=== PATIENT | female | born 1995 | race Two or more races ===

== ENCOUNTER → 2017-04-06 | Outpatient (REF) | payer OTHER ==
[2017-04-07 14:07] LABS: RBC, URINE NONE SEEN /hpf (0-3); WBC, URINE 0-1 /hpf (0-3)
[2017-04-07 14:08] LABS: BACTERIA, URINE LARGE AMOUNT; HYALINE CAST, URINE NONE SEEN /lpf (0-1); MICROSCOPIC EXAM PERFORMED; SQUAMOUS EPITHELIAL CELL URINE MOD AMOUNT /hpf (SMALL AMT)
[2017-04-09 14:13] LABS: Candida species Negative (Negative); Gardnerella vaginalis Negative (Negative); Trichamonas vaginalis Negative (Negative)
== END ==
LOC: M SMT 12:53
DX: N89.8 Other specified noninflammatory disorders of vagina (principal)

== ENCOUNTER 2017-08-10 04:42 | Inpatient (IN) | payer OTHER ==
[2017-08-10 06:19] LABS: BEDSIDE GLUCOSE 139 MG/DL (70-105)
[2017-08-10] MEDS: NS 500 ML IV (06:28)
[2017-08-10] MEDS: MORPHINE 2 MG/ML 1ML SYRINGE (J2270) IV (06:28)
[2017-08-10 06:32] LABS: CONTROL LINE HCG INT CTR LINE PRESENT; HCG, SERUM QUALITATIVE NEGATIVE (NEGATIVE)
[2017-08-10 06:33] LABS: BASO % 0.4 % (0.0-1.0); EOS % 0.4 % (0.0-3.0); HEMATOCRIT 31.7 % (36.0-47.0); HEMOGLOBIN 9.5 g/dl (12.0-15.5); IMMATURE GRANULOCYTE % 0.3 % (0-3.0); LYMPH # 2.4 10^3/uL (1.5-6.5); LYMPH % 21.9 % (24.0-44.0); MEAN CORPUSCULAR HEMOGLOBIN 22.1 pg (27.0-33.0); MEAN CORPUSCULAR VOLUME 73.7 fl (80.0-96.0); MONO # 0.9 10^3/uL (0.0-0.8); MONO % 7.9 % (0.0-5.0); NEUTROPHILS # 7.5 10^3/uL (1.8-7.7); NEUTROPHILS % 69.1 % (36.0-66.0); PLATELET COUNT, AUTOMATED 309 10^3/uL (150-450); RED CELL DISTRIBUTION WIDTH 14.6 % (11.5-14.5); WHITE BLOOD COUNT 10.8 10^3/uL (4.0-10.0)
[2017-08-10 06:42] LABS: ALBUMIN 2.8 GM/DL (3.2-5.2); ALBUMIN/GLOBULIN RATIO 0.68 (1.00-1.93); ALKALINE PHOSPHATASE 110 U/L (45-117); ALT/SGPT 40 U/L (12-78); ANION GAP 8 MEQ/L (8-16); AST/SGOT 33 U/L (7-37); BILIRUBIN,DIRECT < 0.1 MG/DL (0.0-0.2); BILIRUBIN,TOTAL 0.2 MG/DL (0.2-1.0); BLOOD UREA NITROGEN 8 MG/DL (7-18); CALCIUM LEVEL 8.4 MG/DL (8.5-10.1); CARBON DIOXIDE LEVEL 25 MEQ/L (21-32); CHLORIDE LEVEL 106 MEQ/L (98-107); CPK CREATINE PHOSPHOKINASE 72 U/L (26-192); CREATININE FOR GFR 0.77 MG/DL (0.55-1.30); GLOMERULAR FILTRATION RATE > 60.0 (>60); GLUCOSE, FASTING 143 MG/DL (70-100); LIPASE 122 U/L (73-393); POTASSIUM SERUM 3.8 MEQ/L (3.5-5.1); SODIUM LEVEL 139 MEQ/L (136-145); TOTAL PROTEIN 6.9 GM/DL (6.4-8.2); TROPONIN I < 0.02 NG/ML (< 0.10)
[2017-08-10 06:43] LABS: CK-MB VALUE MASS < 1.0 NG/ML (<3.6); INR 1.12; MB/CK RELATIVE INDEX 1.38 (< OR =4); PROTHROMBIN TIME 14.6 SECONDS (12.4-14.5)
[2017-08-10 06:44] LABS: PARTIAL THROMBOPLASTIN TIME 25.6 SECONDS (26.8-37.9)
[2017-08-10] MEDS ORDERED: ISOVUE-370 76% 100ML VIAL (Q9967) As Ordered (06:45)
[2017-08-10] MEDS: LEVEMIR (INSULIN DETEMIR) 1 UNITS/0.01ML SC ×3 (11:22→20:59)
[2017-08-10 11:24] LABS: BEDSIDE GLUCOSE 92 MG/DL (70-105)
[2017-08-10 11:48] LABS: RETIC HEMOGLOBIN EQUIVALENT 19.7 pg (24-36); RETICULOCYTE # 64.5 10^9/L (17-77); RETICULOCYTE % 1.6 % (0.5-1.5)
[2017-08-10] MEDS: HumaLOG INSULIN (NovoLOG) PER UNIT SC ×3 (12:00→20:01)
[2017-08-10 12:04] LABS: ESTIMATED AVERAGE GLUCOSE 309 MG/DL (60-110); HEMOGLOBIN A1c 12.4 %
[2017-08-10 12:16] LABS: FERRITIN 27 NG/ML (8-252)
[2017-08-10 12:18] LABS: TROPONIN I < 0.02 NG/ML (< 0.10)
[2017-08-10 12:18] LABS: IRON (FE) 12 UG/DL (50-170); PERCENT SATURATION 3.8 % (13.2-45.0); TOTAL IRON BINDING CAPACITY 318 UG/DL (250-450)
[2017-08-10] MEDS: DABIGATRAN ETEXILATE 75 MG CAP (PRADAXA) PO ×2 (12:20→20:58)
[2017-08-10] MEDS: ESCITALOPRAM OXALATE 10 MG TAB (LEXAPRO) PO (12:21)
[2017-08-10] MEDS: ACETAMINOPHEN 500 MG TAB PO ×2 (12:21→20:17)
[2017-08-10] MEDS: IBUPROFEN 400 MG TAB PO ×2 (14:00→20:58)
[2017-08-10 17:49] LABS: BEDSIDE GLUCOSE 87 MG/DL (70-105)
[2017-08-10 20:03] LABS: BEDSIDE GLUCOSE 158 MG/DL (70-105)
[2017-08-11] MEDS: ACETAMINOPHEN 500 MG TAB PO ×2 (00:29→05:33)
[2017-08-11 00:33] LABS: BEDSIDE GLUCOSE 78 MG/DL (70-105)
[2017-08-11 03:40] LABS: BEDSIDE GLUCOSE 115 MG/DL (70-105)
[2017-08-11] MEDS: IBUPROFEN 400 MG TAB PO (05:34)
[2017-08-11 06:44] LABS: BEDSIDE GLUCOSE 69 MG/DL (70-105)
[2017-08-11 07:06] LABS: HEMATOCRIT 29.8 % (36.0-47.0); HEMOGLOBIN 8.9 g/dl (12.0-15.5); MEAN CORPUSCULAR HEMOGLOBIN 21.7 pg (27.0-33.0); MEAN CORPUSCULAR HGB CONC 29.9 g/dl (32.0-36.5); MEAN CORPUSCULAR VOLUME 72.5 fl (80.0-96.0); PLATELET COUNT, AUTOMATED 285 10^3/uL (150-450); RED BLOOD COUNT 4.11 10^6/uL (4.00-5.40); RED CELL DISTRIBUTION WIDTH 14.4 % (11.5-14.5); WHITE BLOOD COUNT 9.9 10^3/uL (4.0-10.0)
[2017-08-11] MEDS: HumaLOG INSULIN (NovoLOG) PER UNIT SC (07:21)
[2017-08-11 07:31] LABS: ANION GAP 7 MEQ/L (8-16); BLOOD UREA NITROGEN 12 MG/DL (7-18); CALCIUM LEVEL 8.6 MG/DL (8.5-10.1); CARBON DIOXIDE LEVEL 27 MEQ/L (21-32); CHLORIDE LEVEL 107 MEQ/L (98-107); CREATININE FOR GFR 0.64 MG/DL (0.55-1.30); GLOMERULAR FILTRATION RATE > 60.0 (>60); GLUCOSE, FASTING 67 MG/DL (70-100); POTASSIUM SERUM 3.8 MEQ/L (3.5-5.1); SODIUM LEVEL 141 MEQ/L (136-145)
[2017-08-11 09:16] LABS: BEDSIDE GLUCOSE 149 MG/DL (70-105)
[2017-08-11] MEDS: LEVEMIR (INSULIN DETEMIR) 1 UNITS/0.01ML SC (09:23)
[2017-08-11] MEDS: ESCITALOPRAM OXALATE 10 MG TAB (LEXAPRO) PO (09:23)
[2017-08-11] MEDS: DABIGATRAN ETEXILATE 75 MG CAP (PRADAXA) PO (09:23)
== END 2017-08-11 11:02 | disposition home or self-care (01) | DRG 205 ==
LOC: M ED 04:42 → M ED INP 10:54
DX: M94.0 Chondrocostal junction syndrome [Tietze] (principal); I26.99 Other pulmonary embolism without acute cor pulmonale; J90 Pleural effusion, not elsewhere classified; G47.33 Obstructive sleep apnea (adult) (pediatric); D64.9 Anemia, unspecified; E11.9 Type 2 diabetes mellitus without complications; F39 Unspecified mood [affective] disorder; E28.2 Polycystic ovarian syndrome; Z79.01 Long term (current) use of anticoagulants; Z79.899 Other long term (current) drug therapy; Z79.4 Long term (current) use of insulin; Z88.8 Allergy status to other drugs, medicaments and biological substances

== ENCOUNTER 2017-08-25 12:05 | Inpatient (IN) | payer OTHER ==
[2017-08-25] MEDS: MOM 30ML SUSPENSION UDC PO (09:00)
[2017-08-25 14:07] LABS: BASO # 0.1 10^3/uL (0.0-0.2); BASO % 0.5 % (0.0-1.0); EOS # 0.2 10^3/uL (0.0-0.50); EOS % 1.5 % (0.0-3.0); HEMATOCRIT 30.8 % (36.0-47.0); HEMOGLOBIN 9.1 g/dl (12.0-15.5); IMMATURE GRANULOCYTE % 0.3 % (0-3.0); LYMPH # 2.2 10^3/uL (1.5-6.5); LYMPH % 20.7 % (24.0-44.0); MEAN CORPUSCULAR HEMOGLOBIN 20.9 pg (27.0-33.0); MEAN CORPUSCULAR HGB CONC 29.5 g/dl (32.0-36.5); MEAN CORPUSCULAR VOLUME 70.8 fl (80.0-96.0); MONO # 0.6 10^3/uL (0.0-0.8); MONO % 5.5 % (0.0-5.0); NEUTROPHILS # 7.6 10^3/uL (1.8-7.7); NEUTROPHILS % 71.5 % (36.0-66.0); PLATELET COUNT, AUTOMATED 401 10^3/uL (150-450); RED BLOOD COUNT 4.35 10^6/uL (4.00-5.40); RED CELL DISTRIBUTION WIDTH 15.2 % (11.5-14.5); WHITE BLOOD COUNT 10.6 10^3/uL (4.0-10.0)
[2017-08-25] MEDS: MORPHINE 2 MG/ML 1ML SYRINGE (J2270) IV (14:09)
[2017-08-25 14:17] LABS: CONTROL LINE HCG INT CTR LINE PRESENT; HCG, SERUM QUALITATIVE NEGATIVE (NEGATIVE)
[2017-08-25 14:18] LABS: PROTHROMBIN TIME 16.5 SECONDS (12.4-14.5)
[2017-08-25] MEDS ORDERED: ISOVUE-370 76% 100ML VIAL (Q9967) As Ordered (14:22)
[2017-08-25 14:27] LABS: ALBUMIN 2.7 GM/DL (3.2-5.2); ALBUMIN/GLOBULIN RATIO 0.55 (1.00-1.93); ALKALINE PHOSPHATASE 98 U/L (45-117); ALT/SGPT 64 U/L (12-78); ANION GAP 6 MEQ/L (8-16); AST/SGOT 23 U/L (7-37); BILIRUBIN,DIRECT < 0.1 MG/DL (0.0-0.2); BILIRUBIN,TOTAL 0.3 MG/DL (0.2-1.0); BLOOD UREA NITROGEN 7 MG/DL (7-18); C REACTIVE PROTEIN QUANTITATIV 7.05 MG/DL (0.00-0.30); CALCIUM LEVEL 8.6 MG/DL (8.5-10.1); CARBON DIOXIDE LEVEL 27 MEQ/L (21-32); CHLORIDE LEVEL 107 MEQ/L (98-107); CPK CREATINE PHOSPHOKINASE 295 U/L (26-192); CREATININE FOR GFR 0.73 MG/DL (0.55-1.30); GLOMERULAR FILTRATION RATE > 60.0 (>60); GLUCOSE, FASTING 106 MG/DL (70-100); POTASSIUM SERUM 3.9 MEQ/L (3.5-5.1); SODIUM LEVEL 140 MEQ/L (136-145); TOTAL PROTEIN 7.6 GM/DL (6.4-8.2); TROPONIN I < 0.02 NG/ML (< 0.10)
[2017-08-25 14:33] LABS: CK-MB VALUE MASS < 1.0 NG/ML (<3.6); MB/CK RELATIVE INDEX 0.33 (< OR =4); NT-PRO BNP 56 PG/ML (<125)
[2017-08-25 14:40] LABS: ERYTHROCYTE SEDIMENTATION RATE 85 mm/hr (0-20)
[2017-08-25] MEDS: ALBUTEROL SULFATE 2.5 MG/0.5 ML INH NEB SOLN NEB (14:50)
[2017-08-25] MEDS ORDERED: GLUCOSE 4 GM CHEW TABLET PO (15:45)
[2017-08-25] MEDS ORDERED: GLUCAGON FOR INJ 1 MG VIAL (J1610) SC (15:45)
[2017-08-25] MEDS ORDERED: DEXTROSE 50% 50 ML SYRINGE IV (15:45)
[2017-08-25] MEDS ORDERED: ACETAMINOPHEN TAB 650MG DOSE (2X325MG) PO (15:45)
[2017-08-25] MEDS ORDERED: ONDANSETRON 4MG/2ML VIAL (J2405) IV (15:45)
[2017-08-25] MEDS ORDERED: MIDAZOLAM INJ 2 MG/2 ML VIAL (J2250) As Ordered ×4 (16:35→16:36)
[2017-08-25] MEDS ORDERED: FLUMAZENIL 0.5 MG/5 ML VIAL As Ordered (16:35)
[2017-08-25] MEDS ORDERED: LIDOCAINE 1% MDV 20ML VIAL As Ordered (16:36)
[2017-08-25] MEDS ORDERED: KETOROLAC 30 MG/ML VIAL (J1885) As Ordered (17:11)
[2017-08-25] MEDS: LIDOCAINE 1% MDV 20ML VIAL SC (17:15)
[2017-08-25] MEDS ORDERED: BISACODYL 10 MG SUPP PR (17:30)
[2017-08-25] MEDS: HumaLOG INSULIN (NovoLOG) PER UNIT SC ×2 (17:30→21:00)
[2017-08-25] MEDS ORDERED: LEVALBUTEROL 1.25 MG/0.5 ML CONCENTRATE NEB NEB (17:30)
[2017-08-25] MEDS: MORPHINE 4 MG/ML 1ML VIAL/SYRINGE (J2270) IV ×2 (17:45→17:46)
[2017-08-25] MEDS: KETOROLAC 30 MG/ML VIAL (J1885) IV ×2 (17:50→23:52)
[2017-08-25] MEDS: HEPARIN DRIP 25,000 UNITS in APPROPRIATE DILUENT 1 EA IV (17:56)
[2017-08-25 18:09] LABS: LDH LACTATE DEHYDROGENASE 311 U/L (84-246)
[2017-08-25 18:10] LABS: ABG BASE EXCESS 2.1 (-2.0-2.0); ABG HCO3 26.3 MEQ/L (22.0-26.0); ABG O2 SATURATION 99.9 % (95.0-99.0); ABG PARTIAL PRESSURE CO2 39.4 mmHg (35.0-45.0); ABG PARTIAL PRESSURE O2 297.7 mmHg (75.0-100.0); ABG STANDARD HCO3 26.4 MEQ/L (22.0-26.0); ABG TOTAL CO2 27.5 MEQ/L (22.0-29.0); ABG pH (ARTERIAL) 7.442 UNITS (7.350-7.450)
[2017-08-25] MEDS ORDERED: MIDAZOLAM INJ 2 MG/2 ML VIAL (J2250) IV ×2 (18:15→18:30)
[2017-08-25] MEDS: PANTOPRAZOLE 40MG TAB (PROTONIX) PO (18:32)
[2017-08-25] MEDS: PERCOCET 5MG/325MG TAB PO (18:33)
[2017-08-25 18:38] LABS: BEDSIDE GLUCOSE 103 MG/DL (70-105)
[2017-08-25 18:44] LABS: PARTIAL THROMBOPLASTIN TIME 35.4 SECONDS (26.8-37.9)
[2017-08-25 18:59] LABS: PH BODY FLUID 7.583 UNITS (NOT ESTABLISHED); SOURCE, BODY FLUID pH PLEURAL
[2017-08-25 19:15] LABS: BF MONONUCLEAR CELL % 42.1 % (0-0); BF POLYMORPHONUCLEAR CELL % 57.9 % (0-0); RBC BODY FLUID 5 10^3/uL (<2); WBC BODY FLUID 2711 /uL (0-10)
[2017-08-25 19:19] LABS: APPEARANCE, BODY FLUID CLOUDY (CLEAR); BF DIFF IF INDICATED? YES (NO); PLEURAL FL COLOR YELLOW (COLORLESS); SOURCE, BODY FLUID PLEURAL
[2017-08-25 19:23] LABS: AMYLASE, BODY FLUID 20 U/L (NOT ESTABLISHED); CHOLESTEROL, BODY FLUID 88 MG/DL (NOT ESTABLISHED); LDH, BODY FLUID 272 U/L (NOT ESTABLISHED); SOURCE, BODY FLUID AMYLASE PLEURAL; SOURCE, BODY FLUID CHOL PLEURAL; SOURCE, BODY FLUID GLUCOSE PLEURAL; SOURCE, BODY FLUID LDH PLEURAL; SOURCE, BODY FLUID TRIG PLEURAL; TRIGLYCERIDE, BODY FLUID 31 MG/DL (NOT ESTABLISHED)
[2017-08-25 19:24] LABS: SOURCE, BODY FLUID ALBUMIN PLEURAL; SOURCE, BODY FLUID TOT PROTEIN PLEURAL; TOTAL PROTEIN, BODY FLUID 5.4 G/DL (NOT ESTABLISHED)
[2017-08-25] MEDS: LEVALBUTEROL 1.25 MG/0.5 ML CONCENTRATE NEB NEB (19:40)
[2017-08-25] MEDS: FERROUS SULFATE 325MG TAB PO (21:39)
[2017-08-25] MEDS: DOCUSATE SODIUM 100 MG CAP PO (21:39)
[2017-08-25] MEDS: guaiFENesin SYRUP 200 MG/10 ML UDC PO (21:40)
[2017-08-25] MEDS: LEVEMIR (INSULIN DETEMIR) 1 UNITS/0.01ML SC (21:48)
[2017-08-25 21:51] LABS: BEDSIDE GLUCOSE 144 MG/DL (70-105)
[2017-08-26 00:14] LABS: HEMATOCRIT 31.6 % (36.0-47.0); HEMOGLOBIN 9.2 g/dl (12.0-15.5)
[2017-08-26 00:31] LABS: CK-MB VALUE MASS < 1.0 NG/ML (<3.6); CPK CREATINE PHOSPHOKINASE 249 U/L (26-192); TROPONIN I < 0.02 NG/ML (< 0.10)
[2017-08-26 00:45] LABS: PARTIAL THROMBOPLASTIN TIME 22.5 SECONDS (26.8-37.9)
[2017-08-26] MEDS: HEPARIN SOD (PORCINE) 5000 UNITS/ML VIAL IV (00:58)
[2017-08-26] MEDS: LEVALBUTEROL 1.25 MG/0.5 ML CONCENTRATE NEB NEB ×4 (01:57→19:39)
[2017-08-26 05:22] LABS: BEDSIDE GLUCOSE 98 MG/DL (70-105)
[2017-08-26 05:43] LABS: HEMATOCRIT 33.1 % (36.0-47.0); HEMOGLOBIN 9.3 g/dl (12.0-15.5); MEAN CORPUSCULAR HEMOGLOBIN 20.6 pg (27.0-33.0); MEAN CORPUSCULAR HGB CONC 28.1 g/dl (32.0-36.5); MEAN CORPUSCULAR VOLUME 73.2 fl (80.0-96.0); PLATELET COUNT, AUTOMATED 415 10^3/uL (150-450); RED BLOOD COUNT 4.52 10^6/uL (4.00-5.40); RED CELL DISTRIBUTION WIDTH 15.7 % (11.5-14.5); WHITE BLOOD COUNT 8.8 10^3/uL (4.0-10.0)
[2017-08-26] MEDS: KETOROLAC 30 MG/ML VIAL (J1885) IV ×3 (05:58→18:05)
[2017-08-26 06:08] LABS: ALBUMIN 2.9 GM/DL (3.2-5.2); ALBUMIN/GLOBULIN RATIO 0.58 (1.00-1.93); ALKALINE PHOSPHATASE 101 U/L (45-117); ALT/SGPT 65 U/L (12-78); ANION GAP 10 MEQ/L (8-16); AST/SGOT 28 U/L (7-37); BILIRUBIN,TOTAL 0.2 MG/DL (0.2-1.0); BLOOD UREA NITROGEN 9 MG/DL (7-18); CALCIUM LEVEL 8.9 MG/DL (8.5-10.1); CARBON DIOXIDE LEVEL 26 MEQ/L (21-32); CHLORIDE LEVEL 105 MEQ/L (98-107); CPK CREATINE PHOSPHOKINASE 249 U/L (26-192); CREATININE FOR GFR 0.78 MG/DL (0.55-1.30); GLOMERULAR FILTRATION RATE > 60.0 (>60); GLUCOSE, FASTING 99 MG/DL (70-100); MAGNESIUM LEVEL 2.3 MG/DL (1.8-2.4); POTASSIUM SERUM 3.6 MEQ/L (3.5-5.1); SODIUM LEVEL 141 MEQ/L (136-145); TOTAL PROTEIN 7.9 GM/DL (6.4-8.2); TROPONIN I < 0.02 NG/ML (< 0.10)
[2017-08-26 06:09] LABS: CK-MB VALUE MASS < 1.0 NG/ML (<3.6)
[2017-08-26] MEDS: HumaLOG INSULIN (NovoLOG) PER UNIT SC ×4 (07:30→21:00)
[2017-08-26] MEDS: PERCOCET 5MG/325MG TAB PO ×4 (07:55→20:32)
[2017-08-26] MEDS: MOM 30ML SUSPENSION UDC PO (09:00)
[2017-08-26] MEDS: PANTOPRAZOLE 40MG TAB (PROTONIX) PO (09:09)
[2017-08-26] MEDS: DOCUSATE SODIUM 100 MG CAP PO ×2 (09:09→21:00)
[2017-08-26] MEDS: ESCITALOPRAM OXALATE 10 MG TAB (LEXAPRO) PO (09:09)
[2017-08-26] MEDS: FERROUS SULFATE 325MG TAB PO ×2 (09:09→21:00)
[2017-08-26] MEDS: LEVEMIR (INSULIN DETEMIR) 1 UNITS/0.01ML SC ×2 (09:10→21:22)
[2017-08-26] MEDS: HEPARIN DRIP 25,000 UNITS in APPROPRIATE DILUENT 1 EA IV (10:01)
[2017-08-26 11:54] LABS: BEDSIDE GLUCOSE 89 MG/DL (70-105)
[2017-08-26 14:13] LABS: HEMATOCRIT 30.4 % (36.0-47.0); HEMOGLOBIN 8.8 g/dl (12.0-15.5)
[2017-08-26 14:25] LABS: PARTIAL THROMBOPLASTIN TIME 61.8 SECONDS (26.8-37.9)
[2017-08-26 14:45] LABS: CK-MB VALUE MASS < 1.0 NG/ML (<3.6); CPK CREATINE PHOSPHOKINASE 245 U/L (26-192); TROPONIN I < 0.02 NG/ML (< 0.10)
[2017-08-26] MEDS: NORCO, ANEXSIA 5/325MG TABLET (HYDROcodone/ACETAMINOPHEN) PO (14:55)
[2017-08-26 16:36] LABS: BEDSIDE GLUCOSE 123 MG/DL (70-105)
[2017-08-26 21:21] LABS: BEDSIDE GLUCOSE 125 MG/DL (70-105)
[2017-08-26 21:48] LABS: PARTIAL THROMBOPLASTIN TIME 76.3 SECONDS (26.8-37.9)
[2017-08-27] MEDS: HEPARIN DRIP 25,000 UNITS in APPROPRIATE DILUENT 1 EA IV ×2 (01:06→14:57)
[2017-08-27] MEDS: LEVALBUTEROL 1.25 MG/0.5 ML CONCENTRATE NEB NEB ×4 (01:11→21:11)
[2017-08-27] MEDS: PERCOCET 5MG/325MG TAB PO ×2 (02:37→18:20)
[2017-08-27 02:42] LABS: BEDSIDE GLUCOSE 98 MG/DL (70-105)
[2017-08-27 05:11] LABS: HEMATOCRIT 30.9 % (36.0-47.0); HEMOGLOBIN 8.7 g/dl (12.0-15.5); MEAN CORPUSCULAR HEMOGLOBIN 20.5 pg (27.0-33.0); MEAN CORPUSCULAR HGB CONC 28.2 g/dl (32.0-36.5); MEAN CORPUSCULAR VOLUME 72.7 fl (80.0-96.0); PLATELET COUNT, AUTOMATED 393 10^3/uL (150-450); RED BLOOD COUNT 4.25 10^6/uL (4.00-5.40); RED CELL DISTRIBUTION WIDTH 15.7 % (11.5-14.5)
[2017-08-27 05:15] LABS: ALBUMIN 2.4 GM/DL (3.2-5.2); ALBUMIN/GLOBULIN RATIO 0.52 (1.00-1.93); ALKALINE PHOSPHATASE 155 U/L (45-117); ALT/SGPT 242 U/L (12-78); ANION GAP 7 MEQ/L (8-16); AST/SGOT 298 U/L (7-37); BILIRUBIN,TOTAL 0.5 MG/DL (0.2-1.0); BLOOD UREA NITROGEN 12 MG/DL (7-18); CALCIUM LEVEL 8.7 MG/DL (8.5-10.1); CARBON DIOXIDE LEVEL 28 MEQ/L (21-32); CHLORIDE LEVEL 107 MEQ/L (98-107); CREATININE FOR GFR 0.68 MG/DL (0.55-1.30); GLOMERULAR FILTRATION RATE > 60.0 (>60); GLUCOSE, FASTING 91 MG/DL (70-100); MAGNESIUM LEVEL 2.2 MG/DL (1.8-2.4); POTASSIUM SERUM 4.1 MEQ/L (3.5-5.1); SODIUM LEVEL 142 MEQ/L (136-145)
[2017-08-27 05:25] LABS: PARTIAL THROMBOPLASTIN TIME 97.2 SECONDS (26.8-37.9)
[2017-08-27] MEDS ORDERED: ISOVUE-370 76% 100ML VIAL (Q9967) As Ordered ×2 (05:27→06:09)
[2017-08-27] MEDS: KETOROLAC 30 MG/ML VIAL (J1885) IV ×5 (05:40→23:45)
[2017-08-27] MEDS: NORCO, ANEXSIA 5/325MG TABLET (HYDROcodone/ACETAMINOPHEN) PO (06:36)
[2017-08-27] MEDS: HumaLOG INSULIN (NovoLOG) PER UNIT SC ×4 (07:28→20:29)
[2017-08-27] MEDS: MOM 30ML SUSPENSION UDC PO (09:00)
[2017-08-27] MEDS: LEVEMIR (INSULIN DETEMIR) 1 UNITS/0.01ML SC ×3 (09:58→21:20)
[2017-08-27] MEDS: FERROUS SULFATE 325MG TAB PO ×2 (09:59→21:20)
[2017-08-27] MEDS: DOCUSATE SODIUM 100 MG CAP PO ×2 (09:59→21:20)
[2017-08-27] MEDS: ESCITALOPRAM OXALATE 10 MG TAB (LEXAPRO) PO (09:59)
[2017-08-27] MEDS: PANTOPRAZOLE 40MG TAB (PROTONIX) PO (09:59)
[2017-08-27 11:47] LABS: BEDSIDE GLUCOSE 95 MG/DL (70-105)
[2017-08-27 17:02] LABS: BEDSIDE GLUCOSE 117 MG/DL (70-105)
[2017-08-27 20:29] LABS: BEDSIDE GLUCOSE 113 MG/DL (70-105)
[2017-08-27 23:57] LABS: BEDSIDE GLUCOSE 102 MG/DL (70-105)
[2017-08-28] MEDS: LEVALBUTEROL 1.25 MG/0.5 ML CONCENTRATE NEB NEB ×4 (02:00→20:00)
[2017-08-28] MEDS: HEPARIN DRIP 25,000 UNITS in APPROPRIATE DILUENT 1 EA IV ×2 (04:45→21:16)
[2017-08-28 05:04] LABS: HEMATOCRIT 28.6 % (36.0-47.0); HEMOGLOBIN 8.3 g/dl (12.0-15.5); MEAN CORPUSCULAR VOLUME 72.2 fl (80.0-96.0); PLATELET COUNT, AUTOMATED 398 10^3/uL (150-450); RED BLOOD COUNT 3.96 10^6/uL (4.00-5.40); RED CELL DISTRIBUTION WIDTH 15.5 % (11.5-14.5); WHITE BLOOD COUNT 5.9 10^3/uL (4.0-10.0)
[2017-08-28 05:25] LABS: ALBUMIN 2.4 GM/DL (3.2-5.2); ALBUMIN/GLOBULIN RATIO 0.63 (1.00-1.93); ALKALINE PHOSPHATASE 162 U/L (45-117); ALT/SGPT 243 U/L (12-78); ANION GAP 5 MEQ/L (8-16); AST/SGOT 130 U/L (7-37); BILIRUBIN,TOTAL 0.2 MG/DL (0.2-1.0); BLOOD UREA NITROGEN 14 MG/DL (7-18); CALCIUM LEVEL 8.7 MG/DL (8.5-10.1); CARBON DIOXIDE LEVEL 31 MEQ/L (21-32); CHLORIDE LEVEL 106 MEQ/L (98-107); CREATININE FOR GFR 0.61 MG/DL (0.55-1.30); GLOMERULAR FILTRATION RATE > 60.0 (>60); GLUCOSE, FASTING 86 MG/DL (70-100); MAGNESIUM LEVEL 1.9 MG/DL (1.8-2.4); POTASSIUM SERUM 3.9 MEQ/L (3.5-5.1); SODIUM LEVEL 142 MEQ/L (136-145); TOTAL PROTEIN 6.2 GM/DL (6.4-8.2)
[2017-08-28] MEDS: KETOROLAC 30 MG/ML VIAL (J1885) IV ×3 (05:49→17:41)
[2017-08-28] MEDS: HumaLOG INSULIN (NovoLOG) PER UNIT SC ×4 (07:01→21:00)
[2017-08-28 07:10] LABS: INR 1.19; PROTHROMBIN TIME 15.3 SECONDS (12.4-14.5)
[2017-08-28] MEDS: MOM 30ML SUSPENSION UDC PO (09:00)
[2017-08-28] MEDS: LEVEMIR (INSULIN DETEMIR) 1 UNITS/0.01ML SC ×2 (09:18→21:55)
[2017-08-28] MEDS: PANTOPRAZOLE 40MG TAB (PROTONIX) PO (09:19)
[2017-08-28] MEDS: PERCOCET 5MG/325MG TAB PO ×3 (09:19→21:56)
[2017-08-28] MEDS: FERROUS SULFATE 325MG TAB PO ×2 (09:19→21:54)
[2017-08-28] MEDS: ESCITALOPRAM OXALATE 10 MG TAB (LEXAPRO) PO (09:19)
[2017-08-28] MEDS: DOCUSATE SODIUM 100 MG CAP PO ×2 (09:19→21:54)
[2017-08-28 11:59] LABS: BEDSIDE GLUCOSE 125 MG/DL (70-105)
[2017-08-28] MEDS: NORCO, ANEXSIA 5/325MG TABLET (HYDROcodone/ACETAMINOPHEN) PO ×2 (12:38→17:39)
[2017-08-28 16:56] LABS: BEDSIDE GLUCOSE 129 MG/DL (70-105)
[2017-08-28] MEDS: WARFARIN SOD 5 MG TAB PO (17:40)
[2017-08-28 20:13] LABS: BEDSIDE GLUCOSE 98 MG/DL (70-105)
[2017-08-29] MEDS: KETOROLAC 30 MG/ML VIAL (J1885) IV ×4 (00:19→17:39)
[2017-08-29] MEDS: LEVALBUTEROL 1.25 MG/0.5 ML CONCENTRATE NEB NEB ×4 (00:27→21:54)
[2017-08-29 06:16] LABS: HEMATOCRIT 27.6 % (36.0-47.0); HEMOGLOBIN 8.1 g/dl (12.0-15.5); MEAN CORPUSCULAR HGB CONC 29.3 g/dl (32.0-36.5); MEAN CORPUSCULAR VOLUME 71.5 fl (80.0-96.0); PLATELET COUNT, AUTOMATED 413 10^3/uL (150-450); RED BLOOD COUNT 3.86 10^6/uL (4.00-5.40); RED CELL DISTRIBUTION WIDTH 15.8 % (11.5-14.5); WHITE BLOOD COUNT 6.4 10^3/uL (4.0-10.0)
[2017-08-29 06:30] LABS: INR 1.12; PROTHROMBIN TIME 14.6 SECONDS (12.4-14.5)
[2017-08-29 06:32] LABS: PARTIAL THROMBOPLASTIN TIME 82.7 SECONDS (26.8-37.9)
[2017-08-29] MEDS: PERCOCET 5MG/325MG TAB PO ×3 (06:40→21:24)
[2017-08-29 06:54] LABS: ALBUMIN 2.4 GM/DL (3.2-5.2); ALBUMIN/GLOBULIN RATIO 0.56 (1.00-1.93); ALKALINE PHOSPHATASE 140 U/L (45-117); ALT/SGPT 170 U/L (12-78); ANION GAP 8 MEQ/L (8-16); AST/SGOT 55 U/L (7-37); BILIRUBIN,TOTAL 0.1 MG/DL (0.2-1.0); BLOOD UREA NITROGEN 17 MG/DL (7-18); CALCIUM LEVEL 8.6 MG/DL (8.5-10.1); CARBON DIOXIDE LEVEL 28 MEQ/L (21-32); CHLORIDE LEVEL 108 MEQ/L (98-107); CREATININE FOR GFR 0.62 MG/DL (0.55-1.30); GLOMERULAR FILTRATION RATE > 60.0 (>60); GLUCOSE, FASTING 102 MG/DL (70-100); MAGNESIUM LEVEL 1.9 MG/DL (1.8-2.4); POTASSIUM SERUM 3.9 MEQ/L (3.5-5.1); SODIUM LEVEL 144 MEQ/L (136-145); TOTAL PROTEIN 6.7 GM/DL (6.4-8.2)
[2017-08-29] MEDS: HumaLOG INSULIN (NovoLOG) PER UNIT SC ×4 (07:30→21:20)
[2017-08-29] MEDS: LEVEMIR (INSULIN DETEMIR) 1 UNITS/0.01ML SC ×2 (09:00→21:21)
[2017-08-29] MEDS: MOM 30ML SUSPENSION UDC PO (09:00)
[2017-08-29] MEDS: DOCUSATE SODIUM 100 MG CAP PO ×2 (09:00→21:20)
[2017-08-29] MEDS: FERROUS SULFATE 325MG TAB PO ×2 (10:49→21:20)
[2017-08-29] MEDS: PANTOPRAZOLE 40MG TAB (PROTONIX) PO (10:49)
[2017-08-29] MEDS: ESCITALOPRAM OXALATE 10 MG TAB (LEXAPRO) PO (10:53)
[2017-08-29] MEDS: HEPARIN DRIP 25,000 UNITS in APPROPRIATE DILUENT 1 EA IV (10:55)
[2017-08-29 11:47] LABS: BEDSIDE GLUCOSE 119 MG/DL (70-105)
[2017-08-29 16:41] LABS: BEDSIDE GLUCOSE 110 MG/DL (70-105)
[2017-08-29] MEDS: WARFARIN SOD 5 MG TAB PO (17:39)
[2017-08-29 20:52] LABS: BEDSIDE GLUCOSE 122 MG/DL (70-105)
[2017-08-30] MEDS: KETOROLAC 30 MG/ML VIAL (J1885) IV ×3 (00:30→12:00)
[2017-08-30] MEDS: HEPARIN DRIP 25,000 UNITS in APPROPRIATE DILUENT 1 EA IV (01:23)
[2017-08-30] MEDS: PERCOCET 5MG/325MG TAB PO ×3 (01:54→21:21)
[2017-08-30] MEDS: LEVALBUTEROL 1.25 MG/0.5 ML CONCENTRATE NEB NEB ×4 (01:56→19:38)
[2017-08-30 06:54] LABS: HEMATOCRIT 27.5 % (36.0-47.0); HEMOGLOBIN 7.9 g/dl (12.0-15.5); MEAN CORPUSCULAR HEMOGLOBIN 20.7 pg (27.0-33.0); MEAN CORPUSCULAR HGB CONC 28.7 g/dl (32.0-36.5); PLATELET COUNT, AUTOMATED 382 10^3/uL (150-450); RED BLOOD COUNT 3.82 10^6/uL (4.00-5.40); RED CELL DISTRIBUTION WIDTH 15.9 % (11.5-14.5)
[2017-08-30 07:05] LABS: PARTIAL THROMBOPLASTIN TIME 87.6 SECONDS (26.8-37.9)
[2017-08-30 07:26] LABS: ALBUMIN 2.4 GM/DL (3.2-5.2); ALKALINE PHOSPHATASE 161 U/L (45-117); ALT/SGPT 135 U/L (12-78); ANION GAP 6 MEQ/L (8-16); AST/SGOT 84 U/L (7-37); BILIRUBIN,TOTAL 0.2 MG/DL (0.2-1.0); BLOOD UREA NITROGEN 13 MG/DL (7-18); CALCIUM LEVEL 8.9 MG/DL (8.5-10.1); CARBON DIOXIDE LEVEL 28 MEQ/L (21-32); CHLORIDE LEVEL 106 MEQ/L (98-107); CREATININE FOR GFR 0.59 MG/DL (0.55-1.30); GLOMERULAR FILTRATION RATE > 60.0 (>60); GLUCOSE, FASTING 75 MG/DL (70-100); MAGNESIUM LEVEL 1.8 MG/DL (1.8-2.4); POTASSIUM SERUM 3.8 MEQ/L (3.5-5.1); SODIUM LEVEL 140 MEQ/L (136-145); TOTAL PROTEIN 6.4 GM/DL (6.4-8.2)
[2017-08-30] MEDS: HumaLOG INSULIN (NovoLOG) PER UNIT SC ×4 (07:30→21:18)
[2017-08-30] MEDS: MOM 30ML SUSPENSION UDC PO (09:00)
[2017-08-30 09:17] LABS: INR 1.29; PROTHROMBIN TIME 16.4 SECONDS (12.4-14.5)
[2017-08-30] MEDS: FERROUS SULFATE 325MG TAB PO ×2 (09:32→21:18)
[2017-08-30] MEDS: DOCUSATE SODIUM 100 MG CAP PO ×2 (09:32→21:18)
[2017-08-30] MEDS: PANTOPRAZOLE 40MG TAB (PROTONIX) PO (09:32)
[2017-08-30] MEDS: ENOXAPARIN 100MG/1ML SYRINGE (J1650) SC ×2 (09:32→21:20)
[2017-08-30] MEDS: ESCITALOPRAM OXALATE 10 MG TAB (LEXAPRO) PO (09:32)
[2017-08-30] MEDS: LEVEMIR (INSULIN DETEMIR) 1 UNITS/0.01ML SC ×2 (09:33→21:19)
[2017-08-30 12:22] LABS: BEDSIDE GLUCOSE 91 MG/DL (70-105)
[2017-08-30 16:43] LABS: BEDSIDE GLUCOSE 132 MG/DL (70-105)
[2017-08-30] MEDS: NORCO, ANEXSIA 5/325MG TABLET (HYDROcodone/ACETAMINOPHEN) PO (17:43)
[2017-08-30] MEDS: WARFARIN SOD 5 MG TAB PO (17:44)
[2017-08-30 20:36] LABS: BEDSIDE GLUCOSE 151 MG/DL (70-105)
[2017-08-31] MEDS: LEVALBUTEROL 1.25 MG/0.5 ML CONCENTRATE NEB NEB ×3 (02:02→13:29)
[2017-08-31 06:30] LABS: HEMATOCRIT 28.3 % (36.0-47.0); HEMOGLOBIN 8.1 g/dl (12.0-15.5); MEAN CORPUSCULAR HEMOGLOBIN 20.6 pg (27.0-33.0); MEAN CORPUSCULAR HGB CONC 28.6 g/dl (32.0-36.5); PLATELET COUNT, AUTOMATED 412 10^3/uL (150-450); RED BLOOD COUNT 3.93 10^6/uL (4.00-5.40); RED CELL DISTRIBUTION WIDTH 16.1 % (11.5-14.5); WHITE BLOOD COUNT 6.4 10^3/uL (4.0-10.0)
[2017-08-31 06:37] LABS: INR 1.93; PROTHROMBIN TIME 22.7 SECONDS (12.4-14.5)
[2017-08-31 06:57] LABS: ALBUMIN 2.5 GM/DL (3.2-5.2); ALBUMIN/GLOBULIN RATIO 0.61 (1.00-1.93); ALKALINE PHOSPHATASE 141 U/L (45-117); ALT/SGPT 100 U/L (12-78); ANION GAP 9 MEQ/L (8-16); AST/SGOT 29 U/L (7-37); BILIRUBIN,TOTAL 0.2 MG/DL (0.2-1.0); BLOOD UREA NITROGEN 10 MG/DL (7-18); CALCIUM LEVEL 8.9 MG/DL (8.5-10.1); CARBON DIOXIDE LEVEL 29 MEQ/L (21-32); CHLORIDE LEVEL 105 MEQ/L (98-107); CREATININE FOR GFR 0.67 MG/DL (0.55-1.30); GLOMERULAR FILTRATION RATE > 60.0 (>60); GLUCOSE, FASTING 77 MG/DL (70-100); POTASSIUM SERUM 4.1 MEQ/L (3.5-5.1); SODIUM LEVEL 143 MEQ/L (136-145); TOTAL PROTEIN 6.6 GM/DL (6.4-8.2)
[2017-08-31] MEDS: HumaLOG INSULIN (NovoLOG) PER UNIT SC ×2 (07:56→12:29)
[2017-08-31] MEDS: ENOXAPARIN 100MG/1ML SYRINGE (J1650) SC (09:20)
[2017-08-31] MEDS: ESCITALOPRAM OXALATE 10 MG TAB (LEXAPRO) PO (09:21)
[2017-08-31] MEDS: DOCUSATE SODIUM 100 MG CAP PO (09:21)
[2017-08-31] MEDS: LEVEMIR (INSULIN DETEMIR) 1 UNITS/0.01ML SC (09:21)
[2017-08-31] MEDS: FERROUS SULFATE 325MG TAB PO (09:22)
[2017-08-31] MEDS: MOM 30ML SUSPENSION UDC PO (09:24)
[2017-08-31] MEDS: PANTOPRAZOLE 40MG TAB (PROTONIX) PO (09:24)
[2017-08-31] MEDS: PERCOCET 5MG/325MG TAB PO (09:24)
[2017-08-31 11:37] LABS: BEDSIDE GLUCOSE 131 MG/DL (70-105)
[2017-08-31 14:16] LABS: ANCA-ATYPICAL <1:20 titer (Neg:<1:20); ANTI THROMBIN 3 ANTIGEN IMMUNO 88 % (72-124); ANTI THROMBIN 3 FUNCT ACTIVITY 102 % (75-135); ANTINUCLEAR ANTIBODIES DIRECT Negative (Negative); CARDIOLIPIN IGA ANTIBODY <9 APL U/mL (0-11); CARDIOLIPIN IGG ANTIBODY <9 GPL U/mL (0-14); CARDIOLIPIN IGM ANTIBODY <9 MPL U/mL (0-12); CYTOPLASMIC NEUTROP AB ANCA-C <1:20 titer (Neg:<1:20); PERINUCLEAR AB ANCA-P <1:20 titer (Neg:<1:20); PROTEIN C ANTIGEN 97 % (60-150); PROTEIN S ANTIGEN FREE 93 % (57-157); PROTEIN S ANTIGEN TOTAL 142 % (60-150); SJOGREN'S ANTI SS-A <0.2 AI (0.0-0.9); SJOGREN'S ANTI SS-B <0.2 AI (0.0-0.9)
[2017-08-31] MEDS ORDERED: WARFARIN SOD 7.5 MG TAB PO (17:00)
== END 2017-08-31 14:37 | disposition home or self-care (01) | DRG 176 ==
LOC: M MSPAV 08-28 16:19 → M ED 12:05 → M ED INP 15:31 → M ICU 16:14
PROC: 0W9930Z Drainage of Right Pleural Cavity with Drainage Device, Percutaneous Approach (ICD-10-PCS; principal; 2017-08-25)
DX: I26.99 Other pulmonary embolism without acute cor pulmonale (principal); D68.2 Hereditary deficiency of other clotting factors; J95.811 Postprocedural pneumothorax; E11.9 Type 2 diabetes mellitus without complications; E66.01 Morbid (severe) obesity due to excess calories; G47.33 Obstructive sleep apnea (adult) (pediatric); E28.2 Polycystic ovarian syndrome; F41.9 Anxiety disorder, unspecified; Z79.899 Other long term (current) drug therapy; Z79.01 Long term (current) use of anticoagulants; Z79.4 Long term (current) use of insulin; D64.9 Anemia, unspecified; F39 Unspecified mood [affective] disorder

== ENCOUNTER → 2017-08-25 | Outpatient (REF) | LOC: M SMT 10:08 | DX: Z00.00 Encounter for general adult medical examination without abnormal findings (principal) ==

== ENCOUNTER 2017-09-20 16:13 | Emergency (ER) | payer OTHER ==
[2017-09-20 16:56] LABS: BASO % 0.4 % (0.0-1.0); EOS # 0.3 10^3/uL (0.0-0.50); EOS % 2.6 % (0.0-3.0); HEMATOCRIT 36.4 % (36.0-47.0); IMMATURE GRANULOCYTE % 0.5 % (0-3.0); LYMPH # 2.5 10^3/uL (1.5-6.5); LYMPH % 26.3 % (24.0-44.0); MEAN CORPUSCULAR HEMOGLOBIN 21.7 pg (27.0-33.0); MEAN CORPUSCULAR HGB CONC 30.2 g/dl (32.0-36.5); MEAN CORPUSCULAR VOLUME 71.8 fl (80.0-96.0); MONO % 10.5 % (0.0-5.0); NEUTROPHILS # 5.7 10^3/uL (1.8-7.7); NEUTROPHILS % 59.7 % (36.0-66.0); PLATELET COUNT, AUTOMATED 324 10^3/uL (150-450); RED BLOOD COUNT 5.07 10^6/uL (4.00-5.40); RED CELL DISTRIBUTION WIDTH 18.6 % (11.5-14.5); WHITE BLOOD COUNT 9.5 10^3/uL (4.0-10.0)
[2017-09-20 17:00] LABS: INR 3.78; PARTIAL THROMBOPLASTIN TIME 37.5 SECONDS (25.4-37.6); PROTHROMBIN TIME 38.2 SECONDS (12.1-14.4)
[2017-09-20 17:03] LABS: CONTROL LINE HCG INT CTR LINE PRESENT; HCG, SERUM QUALITATIVE NEGATIVE (NEGATIVE)
[2017-09-20 17:13] LABS: ALBUMIN 3.6 GM/DL (3.2-5.2); ALBUMIN/GLOBULIN RATIO 0.88 (1.00-1.93); ALKALINE PHOSPHATASE 123 U/L (45-117); ALT/SGPT 49 U/L (12-78); ANION GAP 5 MEQ/L (8-16); AST/SGOT 42 U/L (7-37); BILIRUBIN,TOTAL 0.3 MG/DL (0.2-1.0); BLOOD UREA NITROGEN 12 MG/DL (7-18); CALCIUM LEVEL 8.7 MG/DL (8.5-10.1); CARBON DIOXIDE LEVEL 28 MEQ/L (21-32); CHLORIDE LEVEL 106 MEQ/L (98-107); GLOMERULAR FILTRATION RATE > 60.0 (>60); GLUCOSE, FASTING 123 MG/DL (70-100); POTASSIUM SERUM 4.8 MEQ/L (3.5-5.1); SODIUM LEVEL 139 MEQ/L (136-145); TOTAL PROTEIN 7.7 GM/DL (6.4-8.2)
[2017-09-20] MEDS ORDERED: ISOVUE-370 76% 100ML VIAL (Q9967) As Ordered (17:22)
== END 2017-09-20 19:33 | disposition home or self-care (01) ==
LOC: M ED 16:13
DX: I27.82 Chronic pulmonary embolism (principal); R06.02 Shortness of breath; E11.9 Type 2 diabetes mellitus without complications; E28.2 Polycystic ovarian syndrome; G47.33 Obstructive sleep apnea (adult) (pediatric); D68.59 Other primary thrombophilia; Z87.09 Personal history of other diseases of the respiratory system; Z79.4 Long term (current) use of insulin; Z79.899 Other long term (current) drug therapy; Z88.1 Allergy status to other antibiotic agents
CPT/HCPCS: Q9967